=== PATIENT | female | born 1940 | race Caucasian/White ===

== ENCOUNTER → 2016-07-18 | Outpatient (CLI) | payer MEDICARE, BC | LOC: COL.RAD 08:30 | DX: M25.552 Pain in left hip (principal) | CPT/HCPCS: J3301; Q9967 ==

== ENCOUNTER → 2017-03-15 | Outpatient (CLI) | payer MEDICARE, BC | LOC: COL.RAD 03-14 13:00 | DX: M25.552 Pain in left hip (principal) | CPT/HCPCS: J3301; Q9967 ==

== ENCOUNTER → 2017-10-02 | Outpatient (CLI) | payer MEDICARE, BC | LOC: COL.RAD 10:09 | DX: M25.552 Pain in left hip (principal) | CPT/HCPCS: J3301; Q9967 ==

== ENCOUNTER → 2018-01-02 | Outpatient (CLI) | payer MEDICARE, BC | LOC: COL.RAD 13:14 | DX: M16.12 Unilateral primary osteoarthritis, left hip (principal) | CPT/HCPCS: J3301; Q9967 ==

== ENCOUNTER → 2018-01-16 | Outpatient (CLI) | payer MEDICARE, BC | LOC: COL.RAD 12:59 | DX: M16.11 Unilateral primary osteoarthritis, right hip (principal) | CPT/HCPCS: J3301; Q9967 ==

== ENCOUNTER → 2018-04-19 | Outpatient (CLI) | payer MEDICARE, BC | LOC: COL.RAD 09:57 | DX: M25.551 Pain in right hip (principal) | CPT/HCPCS: J3301; Q9967 ==

== ENCOUNTER → 2018-07-24 | Outpatient (CLI) | payer MEDICARE, BC | LOC: COL.RAD 10:30 | DX: M16.12 Unilateral primary osteoarthritis, left hip (principal) | CPT/HCPCS: J3301; Q9967 ==

== ENCOUNTER → 2021-09-27 | Outpatient (CLI) | payer MEDICARE, OTHER | LOC: COL.RAD 12:39 | DX: M51.16 Intervertebral disc disorders with radiculopathy, lumbar region (principal); M48.061 Spinal stenosis, lumbar region without neurogenic claudication; M43.16 Spondylolisthesis, lumbar region; M41.26 Other idiopathic scoliosis, lumbar region; M48.56XA Collapsed vertebra, not elsewhere classified, lumbar region, initial encounter for fracture ==